=== PATIENT | female | born 1955 | race Caucasian/White ===

== ENCOUNTER 2021-12-13 09:29 | Emergency (ER) | payer MEDICARE, BC, SELFPAY ==
[2021-12-13] VITALS (13 sets, daily range): BP systolic 147–178; BP diastolic 75–90; PULSE 70–99; RESP 11–28; TEMP 37.2; O2SAT 95–100; BMI 22.1
[2021-12-13 10:36] LABS: COVID19 -Nasal RAPID Negative (Negative)
--- NOTE | 2021-12-13 11:22 | DI.RAD.S_ITS ---
PROCEDURE: XR CHEST 1V INDICATIONS: short of breath TECHNIQUE: One view of the chest was acquired. COMPARISON: None. FINDINGS: Surgical changes and devices: None. Lungs and pleura: Lungs are clear. No pleural effusions or pneumothorax. Mediastinum: Mediastinal contours appear normal. Heart size is normal. Bones and chest wall: No suspicious bony lesions. Overlying soft tissues appear unremarkable. IMPRESSION: No acute cardiopulmonary abnormality. Dictated by: Agus Jeffrey M.D. on 12/13/2021 at 11:51 Approved by: Agus Jeffrey M.D. on 12/13/2021 at 11:51
--- NOTE | 2021-12-13 11:22 | ED_ITS ---
HPI - URI/Sore Throat General Chief Complaint: Upper Respiratory Symptoms Stated Complaint: shortness of breath,cold/sweats Time Seen by Provider: 12/13/21 11:13 Source: patient Mode of arrival: Ambulatory History of Present Illness HPI Narrative: Patient is a healthy 66-year-old female presents with bright of complaints ongoing for last 3 days. She is currently on cipro which gives her hives for a tooth infection. She has had brain fog headache cough shortness of breath generally not feeling well for the last 3 days. She has no sore throat abdominal pain. She took Benadryl earlier today for the hives. Apparently this is what she does. She has 4 more days left of Cipro. She denies any neck pain. She says 10 years ago this is exactly how she felt when her potassium was low like her potassium checked. Related Data Previous Rx's Medication Instructions Recorded potassium chloride 10 mEq 10 meq PO DAILY #4 tabs 12/13/21 tablet,extended release(part/cryst) Allergies Allergy/AdvReac Type Severity Reaction Status Date / Time amoxicillin [From Augmentin] Allergy Verified 12/13/21 09:51 ciprofloxacin [From Cipro] Allergy Verified 12/13/21 09:51 clavulanic acid Allergy Verified 12/13/21 09:51 [From Augmentin] clindamycin Allergy Verified 12/13/21 09:51 Review of Systems Review of Systems Narrative: GENERAL: + body aches+ fever HEENT: Denies sinus pain, ear pain, sore throat, difficulty swallowing, neck pain RESPIRATORY: Denies dyspnea, cough, wheezing, hemoptysis, sputum. CARDIOVASCULAR: Denies chest pain, palpitations, orthopnea, edema GASTROINTESTINAL: Denies nausea, vomiting, abdominal pain, diarrhea, constipation, melena. : Denies dysuria, frequency, incontinence, hematuria, urinary retention, flank pain. MUSCULOSKELETAL: Denies weakness, joint pain, or bony pain SKIN: Hives NEUROLOGIC: Denies weakness, dizziness, headache, numbness, change in speech, confusion PSYCHIATRIC: No concerning psychosocial issues. 12 point review of systems is negative except for those stated above and HPI Patient History Social History Smoking Status: Unknown if ever smoked Smoking Status: Unknown if ever smoked alcohol intake frequency: holidays/special occasions only Substance Use Type: does not use Exam Initial Vital Signs Initial Vital Signs: Vital Signs Temperature 99.0 F 12/13/21 09:45 Pulse Rate 71 12/13/21 09:45 Respiratory Rate 15 12/13/21 09:45 Blood Pressure 153/84 H 12/13/21 09:45 Pulse Oximetry 100 12/13/21 09:45 Oxygen Delivery Method 12/13/21 09:45 GENERAL: Alert pleasant 66-year-old female and in no acute distress. HEENT: Head atraumatic,EOMI, pupils reactive, face symmetric, moist mucous membranes CARDIOVASCULAR: Regular rate and rhythm without murmurs, rubs or gallops. RESPIRATORY: Breath sounds equal bilaterally, no wheezes rales or rhonchi. ABDOMEN: Soft, nontender. Normoactive bowel sounds all 4 quadrants. No guarding or rebound. EXTREMITIES: Normal range of motion, no clubbing or edema. Neurovascularly intact NEUROLOGICAL: Alert and oriented x4.Normal gait and speech. SKIN: Very minimal hives Course Orders Ordered: ED Orders 12/13/21 09:48 COVID19 -Nasal RAPID/Pre-Proc Stat 12/13/21 11:22 Chest [XR chest 1V] Stat 12/13/21 11:45 CBC Auto Diff [Complete Blood Count AUTO DIFF] Stat CMP [Comprehensive Metabolic Panel] Stat MAG [Magnesium] Stat 12/13/21 13:06 Urine Microscopic Stat Discontinued Medications POTASSIUM CHLORIDE IN WATER (Potassium Cl 10 Meq/100 Ml Lynda) 10 meq in 100 mls @ 100 mls/hr IV Q1H SANDRA Stop: 12/13/21 14:44 Last Infusion: 12/13/21 15:37 Dose: 0 mls/hr Documented By: Admin: 12/13/21 14:27 Dose: 100 mls/hr Documented By: Infusion: 12/13/21 14:27 Dose: 0 mls/hr Documented By: Admin: 12/13/21 13:09 Dose: 100 mls/hr Documented By: HERMILO Methylprednisolone (Methylprednisolone 125 Mg/2 Ml Vial) 125 mg IV NOW ONE Stop: 12/13/21 11:23 Last Admin: 12/13/21 12:00 Dose: 125 mg Documented By: HERMILO Potassium Chloride (Potassium Chloride 20 Meq Tab) 40 meq PO NOW ONE Stop: 12/13/21 12:39 Last Admin: 12/13/21 13:09 Dose: 40 meq Documented By: HERMILO Vital Signs Vital signs: Vital Signs - 8 hr 12/13/21 12:02 12/13/21 12:02 12/13/21 12:43 Pulse Rate 73 70 Respiratory Rate 22 16 Blood Pressure 157/83 H 156/82 H Pulse Oximetry 95 98 Oxygen Delivery Method Room Air 12/13/21 12:25 12/13/21 12:25 12/13/21 13:01 Pulse Rate 76 75 Respiratory Rate 21 Blood Pressure 153/82 H Pulse Oximetry 98 98 Oxygen Delivery Method 12/13/21 13:02 12/13/21 13:02 12/13/21 13:30 Pulse Rate 78 Respiratory Rate 15 Blood Pressure 177/90 H 178/86 H Pulse Oximetry 98 Oxygen Delivery Method 12/13/21 13:30 12/13/21 14:00 12/13/21 14:30 Pulse Rate 81 99 H 85 Respiratory Rate 20 18 28 H Blood Pressure 157/76 H Pulse Oximetry 100 98 Oxygen Delivery Method 12/13/21 14:36 12/13/21 14:36 12/13/21 15:00 Pulse Rate 85 Respiratory Rate 22 Blood Pressure 157/76 H 147/81 H Pulse Oximetry 98 Oxygen Delivery Method 12/13/21 15:00 12/13/21 15:30 12/13/21 15:30 Pulse Rate 85 83 Respiratory Rate 14 15 Blood Pressure 157/75 H Pulse Oximetry 97 96 Oxygen Delivery Method 12/13/21 16:00 12/13/21 16:00 Pulse Rate 80 Respiratory Rate 11 L Blood Pressure 155/80 H Pulse Oximetry 96 Oxygen Delivery Method MDM - URI/Sore Throat Lab Data Result diagrams: 12/13/21 11:45 12/13/21 11:45 Labs: Lab Results 12/13/21 12/13/21 12/13/21 Range/Units 09:48 11:45 11:45 WBC 7.0 (4.5-11.0) X10^3/uL RBC 4.53 (4.0-5.2) X10^6/uL Hgb 13.5 (12.0-16.0) g/dL Hct 38.6 (36-46) % MCV 85.3 (80-100) fL MCH 29.8 (26-34) PG MCHC 34.9 (30-36) % RDW 13.2 (11.6-14.8) % Plt Count 330 (150-400) X10^3/uL Neut % (Auto) 80.7 H (50-75) % Lymph % (Auto) 9.8 L (25-40) % [place] % (Auto) 8.9 (3-14) % Eos % (Auto) 0.2 L (2-4) % Baso % (Auto) 0.4 (0-2) % Neut # (Auto) 5600 (9698-0860) /uL Lymph # (Auto) 700 L (4423-2994) /uL [place] # (Auto) 600 (0-900) /uL Eos # (Auto) 0 (0-450) /uL Baso # (Auto) 0 (0-100) /uL Sodium 130 L (137-145) mmol/L Potassium 2.7 L* (3.4-5.1) mmol/L Chloride 92 L (98-107) mmol/L Carbon Dioxide 27 (22-32) mmol/L BUN 11 (7-17) mg/dL Creatinine 0.79 (0.52-1.04) mg/dL Estimated GFR > 60 (>60) mL/min BUN/Creatinine Ratio 13.9 (6-22) Glucose 102 (80-110) mg/dL Calcium 9.0 (8.4-10.2) mg/dL Magnesium (1.6-2.3) mg/dL Total Bilirubin 0.7 (0.2-1.3) mg/dL AST 35 (14-36) IU/L ALT 34 (<35) IU/L Alkaline Phosphatase 97 (38-126) U/L Total Protein 7.9 (6.3-8.2) g/dL Albumin 4.7 (3.5-5.0) g/dL Globulin 3.2 (1.7-4.1) g/dL Albumin/Globulin Ratio 1.5 (1.0-2.8) SARS-CoV-2 (PCR) Negative (Negative) 12/13/21 Range/Units 11:45 WBC (4.5-11.0) X10^3/uL RBC (4.0-5.2) X10^6/uL Hgb (12.0-16.0) g/dL Hct (36-46) % MCV (80-100) fL MCH (26-34) PG MCHC (30-36) % RDW (11.6-14.8) % Plt Count (150-400) X10^3/uL Neut % (Auto) (50-75) % Lymph % (Auto) (25-40) % [place] % (Auto) (3-14) % Eos % (Auto) (2-4) % Baso % (Auto) (0-2) % Neut # (Auto) (1659-3558) /uL Lymph # (Auto) (7579-1856) /uL [place] # (Auto) (0-900) /uL Eos # (Auto) (0-450) /uL Baso # (Auto) (0-100) /uL Sodium (137-145) mmol/L Potassium (3.4-5.1) mmol/L Chloride (98-107) mmol/L Carbon Dioxide (22-32) mmol/L BUN (7-17) mg/dL Creatinine (0.52-1.04) mg/dL Estimated GFR (>60) mL/min BUN/Creatinine Ratio (6-22) Glucose (80-110) mg/dL Calcium (8.4-10.2) mg/dL Magnesium 2.0 (1.6-2.3) mg/dL Total Bilirubin (0.2-1.3) mg/dL AST (14-36) IU/L ALT (<35) IU/L Alkaline Phosphatase (38-126) U/L Total Protein (6.3-8.2) g/dL Albumin (3.5-5.0) g/dL Globulin (1.7-4.1) g/dL Albumin/Globulin Ratio (1.0-2.8) SARS-CoV-2 (PCR) (Negative) MDM Narrative Medical decision making narrative: Patient is found to be hypokalemic. She states this happens to her when she decreases or Lyrica which she is doing. She denies any diarrhea. She says this happened to her dad as well. Potassium today is 2.7. She is given 20 mEq through the IV and 40 orally. Recommend outpatient recheck. Overall patient is feeling better. Magnesium is within normal limits. She is negative for COVID. Discharge Plan Departure Patient Disposition: Home Clinical Impression: Acute hypokalemia Activity Restrictions/Additional Instructions: *You have been diagnosed with low potassium *What to do: Your potassium today is 2.7. He received 20 through the IV and 40 by mouth. Please have your potassium rechecked in a few days with her primary care provider *Continue to take medications as directed Potassium chloride 10 mEq once daily for the next 4 days *Follow up with your primary care provider in 2-3 days or call [phone] *Return to ER if you should have increasing weakness fever chills, or any new, worsening or concerning symptoms Prescriptions: New potassium chloride 10 mEq tablet,ER particles/crystals 10 meq PO DAILY Qty: 4 0RF Visit Report Forms: Patient Portal/API
[2021-12-13 11:59] LABS: Add Manual Diff / Slide Review NO; Basophils Absolute Auto 0 /uL (0-100); Basophils Percent Auto 0.4 % (0-2); Eosinophils Absolute Auto 0 /uL (0-450); Eosinophils Percent Auto 0.2 % (2-4); Hematocrit 38.6 % (36-46); Hemoglobin 13.5 g/dL (12.0-16.0); Lymphocytes Absolute Auto 700 /uL (1100-4500); Lymphocytes Percent Auto 9.8 % (25-40); Mean Corpuscular HGB Conc 34.9 % (30-36); Mean Corpuscular Hemoglobin 29.8 PG (26-34); Mean Corpuscular Volume 85.3 fL (80-100); Monocytes Absolute Auto 600 /uL (0-900); Monocytes Percent Auto 8.9 % (3-14); Neutrophils Absolute Auto 5600 /uL (1500-7000); Neutrophils Percent Auto 80.7 % (50-75); Platelet Count 330 X10^3/uL (150-400); Red Blood Cell Count 4.53 X10^6/uL (4.0-5.2); Red Cell Distribution Width 13.2 % (11.6-14.8)
[2021-12-13] MEDS: methylPREDNISolone 125 MG/2 ML VIAL IV (12:00)
[2021-12-13 12:21] LABS: Alanine Aminotransferase 34 IU/L (<35); Albumin 4.7 g/dL (3.5-5.0); Albumin Globulin Ratio 1.5 (1.0-2.8); Alkaline Phosphatase 97 U/L (38-126); Aspartate Aminotransferase 35 IU/L (14-36); BUN Creatinine Ratio 13.9 (6-22); Bilirubin Total 0.7 mg/dL (0.2-1.3); Blood Urea Nitrogen 11 mg/dL (7-17); Carbon Dioxide 27 mmol/L (22-32); Chloride 92 mmol/L (98-107); Estimated Glomerular Filt Rate > 60 mL/min (>60); Globulin 3.2 g/dL (1.7-4.1); Glucose 102 mg/dL (80-110); HEMOLYSIS < 15 (0-50); Sodium 130 mmol/L (137-145); Total Protein 7.9 g/dL (6.3-8.2)
[2021-12-13 12:37] LABS: Potassium 2.7 mmol/L (3.4-5.1)
[2021-12-13] MEDS: POTASSIUM CHLORIDE 20 MEQ TAB 40 MEQ PO (13:09)
[2021-12-13] MEDS: POTASSIUM CHLORIDE IN WATER 10 MEQ/100 ML PIGGYBACK 100 MEQ IV ×2 (13:09→14:27)
== END 2021-12-13 16:10 | disposition home or self-care (01) ==
PROVIDERS: Emergency Provider Emergency Medicine
DX: E87.6 Hypokalemia (principal); Z20.822 Contact with and (suspected) exposure to COVID-19
CPT/HCPCS: 36415; 71045; 80053; 83735; 85025; 87635; 96365; 96366; 96375; 99284; C9803; J2930

== ENCOUNTER 2021-12-18 09:47 | Emergency (ER) | payer MEDICARE, BC, SELFPAY ==
[2021-12-18] VITALS (19 sets, daily range): BP systolic 141–200; BP diastolic 72–93; PULSE 70–85; RESP 12–23; TEMP 36.8; O2SAT 96–100; BMI 22.1
--- NOTE | 2021-12-18 09:55 | ED.GENADULT ---
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 Patient states she suspects it is her Lyrica which is causing her hypokalemia. She states that she has just felt off since yesterday, she is had some chills and sweats, no fevers that she is aware of she denies any acute chest pain or shortness of breath currently she is had some cramping in her extremities and torso, patient states she is had the cramping in her torso on and off for years but is worse recently. She denies any active nausea or vomiting. She denies abdominal, back or flank pain. Denies any dysuria urgency or frequency. She is felt shaky in generalized and felt tingling in her hands. She denies any numbness otherwise. She states this feels similar to when her potassium has been low and has happened in the past. She denies any diarrhea and states that she was constipated but now that she is stopped her Lyrica which she weaned down and her last dose was this morning her bowels have started to move again. She states her stools have been soft and regular. She has not had any other new medication changes. She states she had a surgical face lift in September. She is been on Lyrica before even then. She has multiple medication allergies. She denies tobacco, alcohol or illicit. Her primary care is Dr. Stanley. Related Data Previous Rx's Medication Instructions Recorded potassium chloride 10 mEq 10 meq PO DAILY #4 tabs 12/13/21 tablet,extended release(part/cryst) Allergies Allergy/AdvReac Type Severity Reaction Status Date / Time amoxicillin [From Augmentin] Allergy Verified 12/18/21 09:53 ciprofloxacin [From Cipro] Allergy Verified 12/18/21 09:53 clavulanic acid Allergy Verified 12/18/21 09:53 [From Augmentin] clindamycin Allergy Verified 12/18/21 09:53 Review of Systems Review of Systems ROS Unobtainable: All systems reviewed & are unremarkable except as noted in HPI and below Patient History Social History Smoking Status: Unknown if ever smoked Smoking Status: Unknown if ever smoked alcohol intake frequency: holidays/special occasions only Substance Use Type: does not use Exam Narrative Exam Narrative: GENERAL: Alert and oriented x three, female in mild distress. HEENT: Head normocephalic, atraumatic, EOMI, pupils reactive, face symmetric, moist mucous membranes NECK: Supple, full range of motion CARDIOVASCULAR: Regular rate and rhythm without murmurs, rubs or gallops. RESPIRATORY: Breath sounds equal bilaterally, no wheezes rales or rhonchi. ABDOMEN: Soft, nontender. Normoactive bowel sounds all 4 quadrants. No guarding or rebound, rigidity, no mass : No CVA tenderness EXTREMITIES: Normal range of motion, no clubbing or edema. Neurovascularly intact. Normal gait. NEUROLOGICAL: Cranial nerves II through XII grossly intact. Moving all extremities SKIN: Warm, dry, no petechiae, no rashes or lesions. Initial Vital Signs Initial Vital Signs: Vital Signs Temperature 98.2 F 12/18/21 09:48 Pulse Rate 85 12/18/21 09:48 Respiratory Rate 18 12/18/21 09:48 Blood Pressure 200/91 H 12/18/21 09:48 Pulse Oximetry 98 12/18/21 09:48 Oxygen Delivery Method 12/18/21 09:48 Course Orders Ordered: Discontinued Medications Potassium Chloride 10 meq/Lidocaine HCl 1 ml/ Sodium Chloride 106 mls @ 106 mls/hr IV Q1H SANDRA Stop: 12/18/21 15:14 Last Infusion: 12/18/21 16:22 Dose: 0 mls/hr Documented By: SUPA Co-signed By: NAM Admin: 12/18/21 15:13 Dose: 106 mls/hr Documented By: SUPA Co-signed By: NAM Infusion: 12/18/21 14:57 Dose: 106 mls/hr Documented By: SUPA Co-signed By: NAM Admin: 12/18/21 13:57 Dose: 106 mls/hr Documented By: SUPA Co-signed By: EDMUND Infusion: 12/18/21 13:51 Dose: 106 mls/hr Documented By: SUPA Co-signed By: EDMUND Admin: 12/18/21 12:51 Dose: 106 mls/hr Documented By: NAM(2) Co-signed By: SUPA Infusion: 12/18/21 12:33 Dose: 106 mls/hr Documented By: NAM(2) Co-signed By: SUPA Admin: 12/18/21 11:33 Dose: 106 mls/hr Documented By: SUPA Co-signed By: NAM(2) Metoclopramide HCl (Metoclopramide 10 Mg/2 Ml Inj) 10 mg IV NOW ONE Stop: 12/18/21 15:18 Last Admin: 12/18/21 15:28 Dose: 10 mg Documented By: SUPA Potassium Chloride (Potassium Chloride 20 Meq Tab) 40 meq PO NOW ONE Stop: 12/18/21 10:58 Last Admin: 12/18/21 11:06 Dose: 40 meq Documented By: NAM(2) Vital Signs Vital signs: Vital Signs - 8 hr 12/18/21 12:28 12/18/21 12:28 12/18/21 12:30 Pulse Rate 72 76 Respiratory Rate 14 18 Blood Pressure 161/85 H Pulse Oximetry 99 100 12/18/21 13:00 12/18/21 13:00 12/18/21 13:30 Pulse Rate 85 72 Respiratory Rate 14 12 Blood Pressure 164/86 H Pulse Oximetry 98 98 12/18/21 14:00 12/18/21 14:00 12/18/21 14:30 Pulse Rate 72 75 Respiratory Rate 13 14 Blood Pressure 168/79 H Pulse Oximetry 97 98 12/18/21 15:00 12/18/21 15:01 12/18/21 15:01 Pulse Rate 78 82 Respiratory Rate 23 Blood Pressure 151/93 H Pulse Oximetry 96 97 12/18/21 15:30 12/18/21 16:00 12/18/21 16:00 Pulse Rate 83 80 Respiratory Rate 23 17 Blood Pressure 141/72 H Pulse Oximetry 98 97 12/18/21 16:30 Pulse Rate 75 Respiratory Rate Blood Pressure Pulse Oximetry 98 Medical Decision Making Lab Data Result diagrams: 12/18/21 09:55 12/18/21 09:55 Labs: Lab Results 12/18/21 12/18/21 12/18/21 Range/Units 09:55 09:55 09:55 WBC 6.3 (4.5-11.0) X10^3/uL RBC 4.69 (4.0-5.2) X10^6/uL Hgb 14.2 (12.0-16.0) g/dL Hct 39.5 (36-46) % MCV 84.2 (80-100) fL MCH 30.3 (26-34) PG MCHC 36.0 (30-36) % RDW 13.2 (11.6-14.8) % Plt Count 377 (150-400) X10^3/uL Neut % (Auto) 73.5 (50-75) % Lymph % (Auto) 15.1 L (25-40) % [place] % (Auto) 8.3 (3-14) % Eos % (Auto) 2.0 (2-4) % Baso % (Auto) 1.1 (0-2) % Neut # (Auto) 4600 (2212-6306) /uL Lymph # (Auto) 1000 L (6177-2682) /uL [place] # (Auto) 500 (0-900) /uL Eos # (Auto) 100 (0-450) /uL Baso # (Auto) 100 (0-100) /uL Sodium 130 L (137-145) mmol/L Potassium 2.8 L (3.4-5.1) mmol/L Chloride 93 L (98-107) mmol/L Carbon Dioxide 29 (22-32) mmol/L BUN 14 (7-17) mg/dL Creatinine 0.89 (0.52-1.04) mg/dL Estimated GFR > 60 (>60) mL/min BUN/Creatinine Ratio 15.7 (6-22) Glucose 126 H (80-110) mg/dL Calcium 9.1 (8.4-10.2) mg/dL Magnesium 1.8 (1.6-2.3) mg/dL Total Bilirubin 0.5 (0.2-1.3) mg/dL AST 38 H (14-36) IU/L ALT 37 H (<35) IU/L Alkaline Phosphatase 88 (38-126) U/L Total Protein 8.1 (6.3-8.2) g/dL Albumin 4.7 (3.5-5.0) g/dL Globulin 3.4 (1.7-4.1) g/dL Albumin/Globulin Ratio 1.4 (1.0-2.8) SARS-CoV-2 (PCR) Negative (Negative) ECG Data Attestation: I personally reviewed and interpreted this ECG as follows: Prior ECG tracings: not available for review Interpretation: Sinus rhythm with premature atrial complexes rate of 70 2p are 172 QRS 88 QTC 578. Possible prolonged QT. No priors for comparison. MDM Narrative Medical decision making narrative: This is a 66-year-old female who re-presents for hypokalemia. Patient was here several days ago she suspected it was secondary to her Lyrica. Patient on medication reviewed does not have a clear cause for her hypokalemia. She has stopped her Lyrica yesterday. She initially stated no diarrhea but states she had some today and another episode here in the department. Potassium was replaced plan to have it rechecked in 24-48 hours, patient feels improved. No other clear cause was found for her symptoms. Patient states she is had issues on and off throughout her life with hypokalemia. She is not typically on supplementation and has not been seen regularly for this issue until recently. Discharge Plan Departure Patient Disposition: Home Clinical Impression: Hypokalemia Instructions: DI for Hypokalemia Activity Restrictions/Additional Instructions: Please follow-up for recheck and have your potassium rechecked tomorrow or the following day as an outpatient. Lab slip is included. Please return for recurrent symptoms, worsening symptoms, lightheadedness or passing out, persistent vomiting, black or bloody stools, new chest pain or shortness of breath or other new or concerning symptoms. Prescriptions: No Action potassium chloride 10 mEq tablet,ER particles/crystals 10 meq PO DAILY Qty: 4 0RF Visit Report Forms: Patient Portal/API
[2021-12-18 10:15] LABS: Add Manual Diff / Slide Review NO; Basophils Absolute Auto 100 /uL (0-100); Basophils Percent Auto 1.1 % (0-2); Eosinophils Absolute Auto 100 /uL (0-450); Hematocrit 39.5 % (36-46); Hemoglobin 14.2 g/dL (12.0-16.0); Lymphocytes Absolute Auto 1000 /uL (1100-4500); Lymphocytes Percent Auto 15.1 % (25-40); Mean Corpuscular Hemoglobin 30.3 PG (26-34); Mean Corpuscular Volume 84.2 fL (80-100); Monocytes Absolute Auto 500 /uL (0-900); Monocytes Percent Auto 8.3 % (3-14); Neutrophils Absolute Auto 4600 /uL (1500-7000); Neutrophils Percent Auto 73.5 % (50-75); Platelet Count 377 X10^3/uL (150-400); Red Blood Cell Count 4.69 X10^6/uL (4.0-5.2); Red Cell Distribution Width 13.2 % (11.6-14.8); White Blood Cell Count 6.3 X10^3/uL (4.5-11.0)
[2021-12-18 10:27] LABS: Alanine Aminotransferase 37 IU/L (<35); Albumin 4.7 g/dL (3.5-5.0); Albumin Globulin Ratio 1.4 (1.0-2.8); Alkaline Phosphatase 88 U/L (38-126); Aspartate Aminotransferase 38 IU/L (14-36); BUN Creatinine Ratio 15.7 (6-22); Bilirubin Total 0.5 mg/dL (0.2-1.3); Blood Urea Nitrogen 14 mg/dL (7-17); Calcium 9.1 mg/dL (8.4-10.2); Carbon Dioxide 29 mmol/L (22-32); Chloride 93 mmol/L (98-107); Estimated Glomerular Filt Rate > 60 mL/min (>60); Globulin 3.4 g/dL (1.7-4.1); Glucose 126 mg/dL (80-110); HEMOLYSIS < 15 (0-50); Magnesium 1.8 mg/dL (1.6-2.3); Potassium 2.8 mmol/L (3.4-5.1); Sodium 130 mmol/L (137-145); Total Protein 8.1 g/dL (6.3-8.2)
[2021-12-18 10:31] LABS: COVID19 -Nasal RAPID Negative (Negative)
[2021-12-18] MEDS: POTASSIUM CHLORIDE 20 MEQ TAB 40 MEQ PO (11:06)
[2021-12-18] MEDS: POTASSIUM CHLORIDE IV ×4 (11:33→15:13)
[2021-12-18] MEDS: LIDOCAINE 1% IV ×4 (11:33→15:13)
[2021-12-18] MEDS: SODIUM CHLORIDE 0.9% IV ×4 (11:33→15:13)
[2021-12-18] MEDS: METOCLOPRAMIDE 10 MG/2 ML INJ IV (15:28)
== END 2021-12-18 16:54 | disposition home or self-care (01) ==
PROVIDERS: Emergency Provider Emergency Medicine
DX: E87.6 Hypokalemia (principal); Z20.822 Contact with and (suspected) exposure to COVID-19
CPT/HCPCS: 36415; 80053; 83735; 85025; 87635; 93005; 96365; 96366; 96375; 99284; C9803; J2765; J3480